=== PATIENT | male | born 1935 | race African-American/Black ===

== ENCOUNTER 2021-07-28 11:00 | Inpatient (IN) | payer MEDICARE, MEDICAID ==
[~2021-07-28] VITALS: Ht 167.6 cm; Wt 59.9 kg
[2021-07-28 11:56] LABS: EOSINOPHILS % 0.1 % (0.0-5.0); HEMATOCRIT. 46.1 % (42.0-52.0); HEMOGLOBIN. 15.2 g/dL (14.0-18.0); MEAN CORPUSCULAR HEMOGLOBIN 28.7 pg (28.0-32.0); MEAN CORPUSCULAR VOLUME 86.9 fL (80.0-94.0); MEAN PLATELET VOLUME 9.2 fl (7.4-10.4); MONOCYTES % 3.1 % (2.0-8.0); NEUTROPHILS % 86.8 % (40.0-76.0); PLATELET 196 x1000/uL (130-400); RED CELL DISTRIBUTION WIDTH 14.6 % (11.6-14.6)
[2021-07-28 12:03] LABS: CHLORIDE 107 mEq/L (98-107)
[2021-07-28 12:12] LABS: CREATINE KINASE 551 IU/L (39-308)
[2021-07-28] MEDS ORDERED: PIPERACILLIN/TAZ 3.375G PREMIX 50 ML IV NR ×3 (12:30→20:15)
[2021-07-28] MEDS ORDERED: VANCOMYCIN 1 G PREMIX 200 ML IV NR (12:30)
[2021-07-28] MEDS ORDERED: SODIUM CHLORIDE 0.9% 1000ML BAG (SEPSIS BOLUS) IV NR (12:30)
[2021-07-28 12:58] LABS: CLARITY URINE CLEAR (CLEAR); COLOR URINE YELLOW (YELLOW); KETONES URINE 1+ (NEGATIVE); LEUKOCYTE ESTERASE URINE NEGATIVE (NEGATIVE); NITRITE URINE NEGATIVE (NEGATIVE); OCCULT BLOOD URINE NEGATIVE (NEGATIVE); PROTEIN URINE TRACE (NEGATIVE); SPECIFIC GRAVITY URINE 1.023 (1.005-1.030); UROBILINOGEN URINE 0.2 E.U./dL (0.2-1.0)
[2021-07-28 13:18] LABS: *BARBITURATES SCREEN URINE NEGATIVE (NEGATIVE); *BENZODIAZEPINES SCREEN URINE NEGATIVE (NEGATIVE); *COCAINE SCREEN URINE NEGATIVE (NEGATIVE)
[2021-07-28 13:19] LABS: *AMPHETAMINES SCREEN URINE NEGATIVE (NEGATIVE); CANNABINOID URINE SCREEN NEGATIVE (NEGATIVE); METHADONE URINE SCREEN NEGATIVE (NEGATIVE); OPIATES URINE SCREEN NEGATIVE (NEGATIVE); PHENCYCLIDINE URINE SCREEN NEGATIVE (NEGATIVE)
[2021-07-28] MEDS ORDERED: GUAIFENESIN 200MG/10ML SUGAR FREE UDC PO PRN (14:30)
[2021-07-28] MEDS ORDERED: ONDANSETRON HCL 4MG/2ML INJ IV PRN (14:30)
[2021-07-28] MEDS ORDERED: NITROGLYCERIN 0.4MG TABLET SL SL PRN (14:30)
[2021-07-28] MEDS ORDERED: CLONIDINE 0.1MG TABLET PO PRN (14:30)
[2021-07-28] MEDS ORDERED: ACETAMINOPHEN 325MG TABLET PO PRN ×2 (14:30)
[2021-07-28] MEDS ORDERED: NA PHOS,M-B/NA PHOS,DI-BA ENEMA 118ML PR PRN (14:30)
[2021-07-28] MEDS ORDERED: IPRATROPIUM/ALBUTEROL 0.5-3(2.5)MG/3ML NEB NEB PRN (14:30)
[2021-07-28] MEDS ORDERED: MAGNESIUM/ALUMINUM HYDROXIDE/SIMETHICONE 30ML UDC PO PRN (14:30)
[2021-07-28] MEDS ORDERED: DOCUSATE SODIUM 100MG CAPSULE PO PRN (14:30)
[2021-07-28] MEDS: DEXT 5%/LACTATED RINGERS 1,000 ML IV SCH (16:01)
[2021-07-28] MEDS: ENOXAPARIN 40MG/0.4ML SYR SUBCUT SCH (16:02)
[2021-07-28] MEDS: DILTIAZEM HCL 60MG TABLET PO SCH ×2 (17:00→21:58)
[2021-07-28] MEDS ORDERED: DEXTROSE 50% WATER 50ML SYRINGE IV PRN (20:15)
[2021-07-28 21:00] VITALS: BP 130/77
[2021-07-28] MEDS: INSULIN LISPRO 100 UNITS/ML SUBCUT SCH (21:00)
[2021-07-28] MEDS ORDERED: ZOLPIDEM TARTRATE 5MG TABLET PO PRN (21:00)
[2021-07-28 21:01] VITALS: BP 132/63
[2021-07-28] MEDS: ASCORBIC ACID 500 MG TABLET PO SCH (21:58)
[2021-07-28] MEDS: FAMOTIDINE 20MG TABLET PO SCH (21:58)
[2021-07-28] MEDS: BLOOD SUGAR DIAGNOSTIC STRIP TEST SCH (21:59)
[2021-07-28 22:00] VITALS: BP 128/60
[2021-07-28] MEDS: PIPERACILLIN/TAZOBACTAM 3.375G in DEXT 5% WATER 50ML IV SCH (22:35)
[2021-07-28 23:33] LABS: CREATINE KINASE MB FRACTION 10.5 ng/mL (0.5-3.6)
[2021-07-29] VITALS (12 sets, daily range): BP systolic 104–146; BP diastolic 49–100
[2021-07-29] MEDS: DEXT 5%/LACTATED RINGERS 1,000 ML IV SCH ×2 (03:51→17:10)
[2021-07-29] MEDS: BLOOD SUGAR DIAGNOSTIC STRIP TEST SCH ×4 (06:01→21:00)
[2021-07-29] MEDS: PIPERACILLIN/TAZOBACTAM 3.375G in DEXT 5% WATER 50ML IV SCH ×3 (06:01→21:03)
[2021-07-29] MEDS: INSULIN LISPRO 100 UNITS/ML SUBCUT SCH ×4 (06:20→21:00)
[2021-07-29 08:04] LABS: CREATINE KINASE MB FRACTION 8.3 ng/mL (0.5-3.6)
[2021-07-29] MEDS: DILTIAZEM HCL 60MG TABLET PO SCH ×4 (09:00→21:00)
[2021-07-29] MEDS ORDERED: VANCOMYCIN 1500MG in DEXTROSE 5% WATER 250ML IV SCH (09:00)
[2021-07-29] MEDS: FAMOTIDINE 20MG TABLET PO SCH ×2 (09:44→21:03)
[2021-07-29] MEDS: ASPIRIN 325MG EC TABLET PO SCH (09:44)
[2021-07-29] MEDS: CHOLECALCIFEROL (D3) 1000 UNIT TABLET PO SCH (09:44)
[2021-07-29] MEDS: ASCORBIC ACID 500 MG TABLET PO SCH ×2 (09:44→21:03)
[2021-07-29] MEDS: ZINC SULFATE 220 MG ( 50 ) CAPSULE PO SCH (09:44)
[2021-07-29] MEDS ORDERED: VANCOMYCIN 1,500 MG in DEXT 5% WATER 250 ML IV SCH (12:00)
[2021-07-29] MEDS: ENOXAPARIN 40MG/0.4ML SYR SUBCUT SCH (15:32)
[2021-07-30] VITALS (11 sets, daily range): BP systolic 106–144; BP diastolic 50–87
[2021-07-30] MEDS: PIPERACILLIN/TAZOBACTAM 3.375G in DEXT 5% WATER 50ML IV SCH ×3 (05:18→23:05)
[2021-07-30 07:12] LABS: CHLORIDE 112 mEq/L (98-107)
[2021-07-30] MEDS: INSULIN LISPRO 100 UNITS/ML SUBCUT SCH ×4 (07:15→21:00)
[2021-07-30] MEDS: BLOOD SUGAR DIAGNOSTIC STRIP TEST SCH ×4 (07:15→21:00)
[2021-07-30 07:18] LABS: BASOPHILS % 0.3 % (0.0-2.0); EOSINOPHILS % 0.3 % (0.0-5.0); HEMATOCRIT. 39.1 % (42.0-52.0); HEMOGLOBIN. 13.1 g/dL (14.0-18.0); LYMPHOCYTES % 34.5 % (20.0-50.0); MEAN CORPUSCULAR HEMOGLOBIN 28.9 pg (28.0-32.0); MEAN CORPUSCULAR VOLUME 86.1 fL (80.0-94.0); MEAN PLATELET VOLUME 9.7 fl (7.4-10.4); MONOCYTES % 7.1 % (2.0-8.0); NEUTROPHILS % 57.8 % (40.0-76.0); PLATELET 160 x1000/uL (130-400); RED BLOOD CELL COUNT 4.54 mill/uL (4.7-6.1); RED CELL DISTRIBUTION WIDTH 14.9 % (11.6-14.6)
[2021-07-30] MEDS: FAMOTIDINE 20MG TABLET PO SCH ×2 (08:03→23:05)
[2021-07-30] MEDS: CHOLECALCIFEROL (D3) 1000 UNIT TABLET PO SCH (08:04)
[2021-07-30] MEDS: ASPIRIN 325MG EC TABLET PO SCH (08:04)
[2021-07-30] MEDS: ASCORBIC ACID 500 MG TABLET PO SCH ×2 (08:04→23:05)
[2021-07-30] MEDS: DILTIAZEM HCL 60MG TABLET PO SCH ×4 (08:04→23:04)
[2021-07-30] MEDS: ZINC SULFATE 220 MG ( 50 ) CAPSULE PO SCH (08:04)
[2021-07-30] MEDS ORDERED: ASPI-1497 MT (13:36)
[2021-07-30] MEDS ORDERED: LEVO250T58 MT (13:36)
[2021-07-30] MEDS ORDERED: DILT30TA38 MT (13:36)
[2021-07-30] MEDS ORDERED: VANCOMYCIN 1 G PREMIX 200 ML IV SCH (15:00)
[2021-07-30] MEDS ORDERED: VANCOMYCIN 1250MG in DEXTROSE 5% WATER 250ML IV SCH (16:00)
[2021-07-30] MEDS: ENOXAPARIN 40MG/0.4ML SYR SUBCUT SCH (16:16)
[2021-07-30] MEDS: VANCOMYCIN 1 G PREMIX 200 ML IV SCH (17:16)
[2021-07-31] VITALS (11 sets, daily range): BP systolic 100–157; BP diastolic 52–112
[2021-07-31] MEDS: BLOOD SUGAR DIAGNOSTIC STRIP TEST SCH ×4 (06:36→21:00)
[2021-07-31] MEDS: INSULIN LISPRO 100 UNITS/ML SUBCUT SCH ×4 (06:36→21:00)
[2021-07-31] MEDS: PIPERACILLIN/TAZOBACTAM 3.375G in DEXT 5% WATER 50ML IV SCH ×3 (06:44→22:15)
[2021-07-31] MEDS: DILTIAZEM HCL 60MG TABLET PO SCH ×4 (08:50→22:04)
[2021-07-31] MEDS: ASCORBIC ACID 500 MG TABLET PO SCH ×2 (08:50→22:05)
[2021-07-31] MEDS: CHOLECALCIFEROL (D3) 1000 UNIT TABLET PO SCH (08:50)
[2021-07-31] MEDS: FAMOTIDINE 20MG TABLET PO SCH ×2 (08:51→22:04)
[2021-07-31] MEDS: ZINC SULFATE 220 MG ( 50 ) CAPSULE PO SCH (08:51)
[2021-07-31] MEDS: ASPIRIN 325MG EC TABLET PO SCH (08:51)
[2021-07-31] MEDS ORDERED: METOPROLOL TARTRATE 25MG TABLET PO SCH (11:00)
[2021-07-31] MEDS: VANCOMYCIN 1 G PREMIX 200 ML IV SCH ×2 (16:00→18:51)
[2021-07-31] MEDS: ENOXAPARIN 40MG/0.4ML SYR SUBCUT SCH (17:13)
[2021-07-31] MEDS: METOPROLOL TARTRATE 25MG TABLET PO SCH (22:08)
[2021-08-01] VITALS (12 sets, daily range): BP systolic 108–159; BP diastolic 47–80
[2021-08-01] MEDS: PIPERACILLIN/TAZOBACTAM 3.375G in DEXT 5% WATER 50ML IV SCH ×3 (06:25→22:32)
[2021-08-01] MEDS: BLOOD SUGAR DIAGNOSTIC STRIP TEST SCH ×4 (06:58→21:10)
[2021-08-01] MEDS: INSULIN LISPRO 100 UNITS/ML SUBCUT SCH ×4 (07:00→21:17)
[2021-08-01] MEDS: CHOLECALCIFEROL (D3) 1000 UNIT TABLET PO SCH (08:28)
[2021-08-01] MEDS: ASCORBIC ACID 500 MG TABLET PO SCH ×2 (08:28→21:09)
[2021-08-01] MEDS: ZINC SULFATE 220 MG ( 50 ) CAPSULE PO SCH (08:28)
[2021-08-01] MEDS: FAMOTIDINE 20MG TABLET PO SCH ×2 (08:29→21:09)
[2021-08-01] MEDS: ASPIRIN 325MG EC TABLET PO SCH (08:29)
[2021-08-01] MEDS: METOPROLOL TARTRATE 25MG TABLET PO SCH ×2 (08:29→21:13)
[2021-08-01] MEDS: DILTIAZEM HCL 60MG TABLET PO SCH ×4 (08:29→21:13)
[2021-08-01] MEDS ORDERED: *PATIENT'S OWN MEDICATION STORAGE XX SCH (13:00)
[2021-08-01] MEDS: ENOXAPARIN 40MG/0.4ML SYR SUBCUT SCH (14:43)
[2021-08-01 16:33] LABS: BASOPHILS % 0.3 % (0.0-2.0); EOSINOPHILS % 2.8 % (0.0-5.0); HEMATOCRIT. 35.1 % (42.0-52.0); HEMOGLOBIN. 11.5 g/dL (14.0-18.0); LYMPHOCYTES % 28.8 % (20.0-50.0); MEAN CORPUSCULAR HEMOGLOBIN 28.3 pg (28.0-32.0); MEAN CORPUSCULAR VOLUME 86.7 fL (80.0-94.0); MEAN PLATELET VOLUME 9.4 fl (7.4-10.4); MONOCYTES % 9.9 % (2.0-8.0); NEUTROPHILS % 58.2 % (40.0-76.0); PLATELET 175 x1000/uL (130-400); RED BLOOD CELL COUNT 4.05 mill/uL (4.7-6.1); RED CELL DISTRIBUTION WIDTH 15.1 % (11.6-14.6)
[2021-08-02] VITALS (12 sets, daily range): BP systolic 93–149; BP diastolic 42–73
[2021-08-02] MEDS: PIPERACILLIN/TAZOBACTAM 3.375G in DEXT 5% WATER 50ML IV SCH ×3 (05:24→22:31)
[2021-08-02] MEDS ORDERED: VANCOMYCIN 1 G PREMIX 200 ML IV SCH (07:00)
[2021-08-02] MEDS: BLOOD SUGAR DIAGNOSTIC STRIP TEST SCH ×4 (07:13→21:00)
[2021-08-02] MEDS: INSULIN LISPRO 100 UNITS/ML SUBCUT SCH ×4 (07:20→21:00)
[2021-08-02] MEDS: METOPROLOL TARTRATE 25MG TABLET PO SCH (08:46)
[2021-08-02] MEDS: CHOLECALCIFEROL (D3) 1000 UNIT TABLET PO SCH (08:46)
[2021-08-02] MEDS: ASPIRIN 325MG EC TABLET PO SCH (08:46)
[2021-08-02] MEDS: ZINC SULFATE 220 MG ( 50 ) CAPSULE PO SCH (08:46)
[2021-08-02] MEDS: ENOXAPARIN 30MG/0.3ML SYR SUBCUT SCH (08:46)
[2021-08-02] MEDS: ASCORBIC ACID 500 MG TABLET PO SCH ×2 (08:46→22:30)
[2021-08-02] MEDS: DILTIAZEM HCL 60MG TABLET PO SCH ×2 (08:46→13:00)
[2021-08-02] MEDS: FAMOTIDINE 20MG TABLET PO SCH ×2 (08:46→22:31)
[2021-08-02] MEDS: SODIUM CHLORIDE 0.45% 1,000 ML IV SCH (11:06)
[2021-08-02] MEDS ORDERED: NON FORMULARY PATIENT HOME MED XX SCH ×2 (12:45)
[2021-08-02] MEDS: DORZOLAM/TIMOLOL 2.23/0.68% OPHTH DROPS 10ML BOTHEYE SCH (15:52)
[2021-08-02] MEDS: BRIMONIDINE 0.2% OPHTH DROPS 5ML BOTHEYE SCH ×2 (15:52→22:00)
[2021-08-02] MEDS ORDERED: HYDRALAZINE 20MG/ML VIAL IV PRN (16:00)
[2021-08-03] VITALS (12 sets, daily range): BP systolic 114–166; BP diastolic 46–97
[2021-08-03] MEDS: SODIUM CHLORIDE 0.45% 1,000 ML IV SCH ×2 (04:21→23:21)
[2021-08-03] MEDS: BRIMONIDINE 0.2% OPHTH DROPS 5ML BOTHEYE SCH ×3 (06:44→23:29)
[2021-08-03] MEDS: BLOOD SUGAR DIAGNOSTIC STRIP TEST SCH (06:46)
[2021-08-03] MEDS: INSULIN LISPRO 100 UNITS/ML SUBCUT SCH (07:20)
[2021-08-03] MEDS: ASCORBIC ACID 500 MG TABLET PO SCH ×2 (08:19→23:19)
[2021-08-03] MEDS: ASPIRIN 325MG EC TABLET PO SCH (08:19)
[2021-08-03] MEDS: FAMOTIDINE 20MG TABLET PO SCH ×2 (08:19→23:19)
[2021-08-03] MEDS: ENOXAPARIN 30MG/0.3ML SYR SUBCUT SCH (08:19)
[2021-08-03] MEDS: CHOLECALCIFEROL (D3) 1000 UNIT TABLET PO SCH (08:19)
[2021-08-03] MEDS: DORZOLAM/TIMOLOL 2.23/0.68% OPHTH DROPS 10ML BOTHEYE SCH (08:19)
[2021-08-03] MEDS: ZINC SULFATE 220 MG ( 50 ) CAPSULE PO SCH (08:19)
[2021-08-03 10:48] LABS: BASOPHILS % 0.3 % (0.0-2.0); EOSINOPHILS % 3.4 % (0.0-5.0); HEMOGLOBIN. 11.9 g/dL (14.0-18.0); LYMPHOCYTES % 24.6 % (20.0-50.0); MEAN CORPUSCULAR HEMOGLOBIN 28.4 pg (28.0-32.0); MEAN CORPUSCULAR VOLUME 86.4 fL (80.0-94.0); MEAN PLATELET VOLUME 9.7 fl (7.4-10.4); MONOCYTES % 7.8 % (2.0-8.0); NEUTROPHILS % 63.9 % (40.0-76.0); PLATELET 151 x1000/uL (130-400); RED BLOOD CELL COUNT 4.17 mill/uL (4.7-6.1); RED CELL DISTRIBUTION WIDTH 14.6 % (11.6-14.6)
[2021-08-03 10:56] LABS: CHLORIDE 105 mEq/L (98-107)
[2021-08-03] MEDS: AMLODIPINE 2.5MG TABLET PO SCH ×2 (13:01→23:19)
[2021-08-03] MEDS: DORZOLAMIDE 2% OPHTH 10 ML BOTTLE BOTHEYE SCH (23:29)
[2021-08-04] VITALS (9 sets, daily range): BP systolic 100–177; BP diastolic 45–83
[2021-08-04] MEDS: BRIMONIDINE 0.2% OPHTH DROPS 5ML BOTHEYE SCH ×2 (06:17→13:03)
[2021-08-04 06:18] LABS: BASOPHILS % 0.2 % (0.0-2.0); EOSINOPHILS % 2.8 % (0.0-5.0); HEMATOCRIT. 42.4 % (42.0-52.0); LYMPHOCYTES % 24.4 % (20.0-50.0); MEAN CORPUSCULAR HEMOGLOBIN 28.6 pg (28.0-32.0); MEAN CORPUSCULAR VOLUME 86.7 fL (80.0-94.0); MEAN PLATELET VOLUME 9.3 fl (7.4-10.4); MONOCYTES % 9.4 % (2.0-8.0); NEUTROPHILS % 63.2 % (40.0-76.0); PLATELET 173 x1000/uL (130-400); RED BLOOD CELL COUNT 4.89 mill/uL (4.7-6.1); RED CELL DISTRIBUTION WIDTH 14.6 % (11.6-14.6)
[2021-08-04 07:19] LABS: CHLORIDE 106 mEq/L (98-107)
[2021-08-04 07:30] LABS: CREATINE KINASE 63 IU/L (39-308)
[2021-08-04 07:31] LABS: CREATINE KINASE MB FRACTION 1.3 ng/mL (0.5-3.6)
[2021-08-04] MEDS: ASCORBIC ACID 500 MG TABLET PO SCH (08:26)
[2021-08-04] MEDS: ZINC SULFATE 220 MG ( 50 ) CAPSULE PO SCH (08:26)
[2021-08-04] MEDS: ASPIRIN 325MG EC TABLET PO SCH (08:26)
[2021-08-04] MEDS: AMLODIPINE 2.5MG TABLET PO SCH (08:26)
[2021-08-04] MEDS: FAMOTIDINE 20MG TABLET PO SCH (08:26)
[2021-08-04] MEDS: ENOXAPARIN 30MG/0.3ML SYR SUBCUT SCH (08:26)
[2021-08-04] MEDS: DORZOLAMIDE 2% OPHTH 10 ML BOTTLE BOTHEYE SCH (08:26)
[2021-08-04] MEDS: CHOLECALCIFEROL (D3) 1000 UNIT TABLET PO SCH (08:26)
[2021-08-04] MEDS: SODIUM CHLORIDE 0.45% 1,000 ML IV SCH (12:52)
[2021-08-05] MEDS ORDERED: ENOXAPARIN 40MG/0.4ML SYR SUBCUT SCH (09:00)
== END 2021-08-04 17:17 | DRG 92 ==
LOC: ER 11:00 → 3WST 14:18 → SUPCPDRO 14:20 → EDBEDREQTM 14:22 → EDBEDREQ 14:22 → EDBEDREQSVC 14:22 → ENRESERV 18:37 → 3WST 07-30 22:28
PROVIDERS: ADMIT Internal Medicine; ATTEND Internal Medicine
DX: G92.8 Other toxic encephalopathy (principal); N39.0 Urinary tract infection, site not specified; M62.82 Rhabdomyolysis; E46 Unspecified protein-calorie malnutrition; E83.52 Hypercalcemia; I10 Essential (primary) hypertension; C61 Malignant neoplasm of prostate; I49.1 Atrial premature depolarization; Z20.822 Contact with and (suspected) exposure to COVID-19; D63.8 Anemia in other chronic diseases classified elsewhere; Z85.07 Personal history of malignant neoplasm of pancreas; Z79.82 Long term (current) use of aspirin; Z79.899 Other long term (current) drug therapy; Z79.2 Long term (current) use of antibiotics; Z85.46 Personal history of malignant neoplasm of prostate; Z68.21 Body mass index [BMI] 21.0-21.9, adult; I25.2 Old myocardial infarction; Z79.4 Long term (current) use of insulin; E11.65 Type 2 diabetes mellitus with hyperglycemia
CPT/HCPCS: 36415; 71045; 80048; 80053; 80202; 80305; 81003; 82550; 82553; 82962; 83605; 83735; 84145; 84153; 84443; 84484; 85025; 87426; 93005; 93306; 93970; 97162; 99291; J0360; J1650; J1815; J2543; J3370; J7040; J7060; A4315; G0103